=== PATIENT | male | born 1965 | race Caucasian/White ===

== ENCOUNTER 2019-05-17 21:29 | Emergency (ER) | payer MEDICAID ==
[~2019-05-17] VITALS: Ht 167.6 cm; Wt 77.1 kg
[2019-05-17 21:36] VITALS: Ht 167.6 cm; Wt 77.1 kg
[2019-05-17 22:31] LABS: BASOPHIL % 1.2 % (0-2); PLATELET COUNT 300 x10^3mcL (130-400); RED CELL DISTRIBUTION WIDTH 13.3 % (11.5-14.5)
[2019-05-17 22:45] LABS: CALCIUM 9.2 mg/dL (8.5-10.1); CARBON DIOXIDE 27.4 mmol/L (21-32); CHLORIDE SERUM 102 mmol/L (98-107); CREATININE SERUM 1.1 mg/dL (0.7-1.3); GFR1 > 60 mL/min; GLUCOSE SERUM 240 mg/dL (74-106); POTASSIUM SERUM 4.1 mmol/L (3.5-5.1); SODIUM SERUM 143 mmol/L (136-145)
[2019-05-17] MEDS ORDERED: GLIMEPIRIDE4 M1 PO (22:46)
[2019-05-17] MEDS ORDERED: LIPI20 PO (22:46)
[2019-05-17] MEDS ORDERED: BENAZEPRIL HYDR40 M1 PO (22:47)
[2019-05-17] MEDS ORDERED: NEU300 PO (22:47)
[2019-05-17] MEDS ORDERED: METFORMIN HCL1000 MG PO (22:48)
[2019-05-17 22:50] LABS: ALBUMIN 3.8 g/dL (3.4-5.0); ALKALINE PHOSPHATASE 129 U/L (46-116); ALT/SGPT 21 U/L (16-63); AST/SGOT 8 U/L (15-37); BILIRUBIN TOTAL 0.4 mg/dL (0.20-1.00); TOTAL PROTEIN, SERUM 7.1 g/dL (6.4-8.2)
[2019-05-17 23:49] VITALS: BP 135/100
== END 2019-05-17 23:49 | disposition short-term general hospital (02) ==
LOC: ED 21:29
PROVIDERS: Emergency Medicine
DX: I63.9 Cerebral infarction, unspecified (principal); I48.2 Chronic atrial fibrillation; I10 Essential (primary) hypertension; E11.9 Type 2 diabetes mellitus without complications
CPT/HCPCS: 82962; J3490; J7030; Q0092